=== PATIENT | male | born 2005 | race Caucasian/White ===

== ENCOUNTER 2023-12-27 18:15 | Day surgery (SDC) | payer OTHER, SELFPAY ==
[2023-12-27] VITALS (10 sets, daily range): BP systolic 137–165; BP diastolic 93–111; PULSE 68–114; RESP 14–18; TEMP -15–37.2; O2SAT 93–100; BMI 33.0
--- NOTE | 2023-12-27 18:44 | ED.GENADULT ---
HPI - General Adult General Date Seen: 12/27/23 Chief complaint: Abdominal Pain Stated complaint: Under ribs-left side severe stomachache Time Seen by Provider: 12/27/23 18:29 Source: patient, family and RN notes reviewed Mode of arrival: ambulatory Limitations: no limitations History of Present Illness HPI narrative: Patient is a 18-year-old who presents for abdominal pain which started overnight last night. He says that initially it was kind of in the upper abdomen both to the right and left. He does note that throughout the day it seems to have moved more into the right lower quadrant. He says as long as he is lying still he does not have any pain but when he leans forward he notes pain in the right lower quadrant. He has had a normal appetite, no nausea or vomiting, no diarrhea. Bowel movement was normal today. He has not had fevers or urinary symptoms. Denies history of similar pain. No prior abdominal surgeries. Mom was concerned about possible appendicitis as their neighbor had a similar presentation. He notes that his general health is good. Denies significant alcohol use. Does not smoke. Related Data Previous Rx's Medication Instructions Recorded dextroamphetamine-amphetamine ER 20 mg PO QAM #30 caps 07/19/23 20 mg 24hr capsule,extend release dextroamphetamine-amphetamine ER 20 mg PO QAM #30 caps 07/19/23 20 mg 24hr capsule,extend release (Adderall XR) dextroamphetamine-amphetamine ER 20 mg PO QAM #30 caps 07/19/23 20 mg 24hr capsule,extend release (Adderall XR) hydrocodone 5 mg-acetaminophen 325 1 - 2 tab PO Q6H PRN Pain #15 tabs 12/28/23 mg tablet Allergies Allergy/AdvReac Type Severity Reaction Status Date / Time No Known Allergies Allergy Unknown Verified 07/19/23 15:33 Review of Systems Status of ROS: Reports: 6 or more systems reviewed and unremarkable except as noted in History and below [facility] Medical History Attention deficit hyperactivity disorder (ADHD) (2017) ?F90.9 - Attention-deficit hyperactivity disorder, unspecified type (ICD-10) Surgical History History of tonsillectomy ?Z90.89 - Acquired absence of other organs (ICD-10) History of nasal surgery ?Z98.890 - Other specified postprocedural states (ICD-10) Family History Brother ADHD (attention deficit hyperactivity disorder) Family/Other Cancer Other Heart disease Stroke Social History Narrative: Non-smoker Smoking Status: Never smoker Do you use any of these nicotine containing products: None How often do you have a drink containing alcohol: monthly or less How often do you have six or more drinks on one occasion: Never AUDIT-C Alcohol total score: 1 Non-prescribed substance use: denies use Exam Narrative: Exam Narrative: Vital signs as noted above. In general, an alert, well-appearing patient. He looks comfortable. Head: Normocephalic, atraumatic. Eyes: Pupils are equal reactive. Extraocular movements are full. Conjunctivae are normal. ENT: Mucous membranes are moist. Throat is normal. Neck: Supple without lymphadenopathy. Heart: Regular rate and rhythm. No murmur or rub. Lungs: Clear bilaterally. No increased work of breathing, crackles or wheezes. Abdomen: Soft and nondistended. He has some tenderness at McBurney's point to deep palpation but does not have any rigidity, guarding or rebound tenderness. Remainder the abdomen is nontender to palpation. Bowel sounds are present. Extremities: Well perfused. No edema. No calf tenderness. Pulses intact. Neurologic: Patient is alert and oriented to person and place. Speech is fluent. Face is symmetric. Moves all extremities equally. Affect: Normal. Skin: Warm and dry. Well perfused. Const: Vital Signs, click to edit/add: Vital Signs - 24 hr 12/27/23 18:22 Temperature 98.9 F Pulse Rate [Pulse Oximeter] 80 Respiratory Rate 18 Blood Pressure [Ri ght Upper Arm] 147/93 H Pulse Oximetry 100 Oxygen Delivery Me thod Room Air Documenting provider has reviewed patient's vital signs: yes Course Course ED Course: Patient presents with right lower quadrant pain with some typical and some atypical features for appendicitis. Other considerations include urinary tract infection or kidney stone, muscular pain, colitis, inflammatory bowel disease, biliary colic or cholecystitis among others. Labs are overall pretty reassuring, white blood cell count is normal but his CRP is elevated at 1.9. Lactate is normal, lipase 32, LFTs otherwise unremarkable and metabolic panel is normal. Blood sugar 98. Urinalysis was negative, 0-2 red cells and 0-2 white cells, no ketones or glucose. Discussed all this with the patient and his mom. Discussed that he certainly does have tenderness over his appendix, and has an elevated CRP. Despite some atypical features I recommended CT scanning to further evaluate. CT is read as showing acute uncomplicated appendicitis in the right lower quadrant. Case discussed with Dr. Turner, who is currently in a case but will assess afterward. Patient is comfortable, declines the need for anything at this time. NPO, last ate around 5 or 530. Vital Signs Vital signs: Initial Vital Signs Temperature 98.9 F 12/27/23 18:22 Temperature Source Temporal Artery Scan 12/27/23 18:22 Pulse Rate 80 12/27/23 18:22 Pulse Rhythm Regular 12/27/23 18:22 Respiratory Rate 18 12/27/23 18:22 Blood Pressure 147/93 H 12/27/23 18:22 Blood Pressure Mean 111 H 12/27/23 18:22 Blood Pressure Position Sitting 12/27/23 18:22 Pulse Oximetry 100 12/27/23 18:22 Oxygen Delivery Method Room Air 12/27/23 18:22 Vital Signs Temperature 98.9 F 12/27/23 18:22 Pulse Rate 80 12/27/23 18:22 Respiratory Rate 18 12/27/23 18:22 Blood Pressure 147/93 H 12/27/23 18:22 Pulse Oximetry 100 12/27/23 18:22 Oxygen Delivery Method Room Air 12/27/23 18:22 Temperature 97.5 F L 12/28/23 01:45 Pulse Rate 114 H 12/27/23 23:58 Respiratory Rate 18 12/28/23 01:45 Blood Pressure 129/82 12/28/23 01:45 Pulse Oximetry 96 12/28/23 01:45 Oxygen Delivery Method Room Air 12/28/23 01:45 Medications Administered Medications: Discontinued Medications Generic Name Dose Route Start Last Admin Trade Name Freq PRN Reason Stop Dose Admin Hydrocodone Bitart/Acetaminophen 1 - 2 tab 12/27/23 23:56 12/28/23 02:07 Hydrocodone-Acetamin 5-325 Mg 1 Tab PO 2 tab Q4H PRN Administration Pain Bupivacaine HCl 30 ml 12/27/23 23:57 12/27/23 22:52 Bupivacaine 0.25% 30 Ml INJECTION 12/27/23 23:58 Not Given ONCE ONE Fentanyl 50 mcg 12/27/23 23:41 12/27/23 23:25 Fentanyl 100 Mcg/2 Ml Inj IVP 50 mcg Q5M PRN Administration Hydromorphone HCl 0.1 - 0.5 mg 12/27/23 23:56 12/28/23 01:53 Hydromorphone 0.5 Mg/0.5 Ml Inj IVP 0.5 mg Q2H PRN Administration Pain Sodium Chloride 1,000 mls @ 1,000 mls/hr 12/27/23 19:45 12/27/23 21:46 0.9 % Sodium Chloride 1000 Ml IV 12/27/23 20:44 Infused .Q1H LUIS E Infusion Lactated Ringer's 1,000 mls @ 125 mls/hr 12/27/23 23:45 12/27/23 23:44 Lactated Ringers 1000 Ml IV 30 mls/hr .Q8H LUIS E Infusion Lactated Ringer's 1,000 mls @ 125 mls/hr 12/27/23 23:56 12/28/23 00:25 Lactated Ringers 1000 Ml IV Not Given .Q8H LUIS E Ketorolac Tromethamine 15 mg 12/27/23 23:56 12/28/23 00:42 Ketorolac 15 Mg/Ml Inj IVP 01/01/24 23:55 15 mg Q6H PRN Administration Pain Piperacillin Sod/Tazobactam Sod 3.375 gm 12/27/23 22:11 12/27/23 22:33 Piperacillin/Tazobactam 3.375 Gm Inj IVPB 12/27/23 22:12 3.375 gm ONCE ONE Administration Medical Decision Making Lab Data Labs: Lab Results 12/27/23 12/27/23 Range/Units 18:50 19:40 WBC 7.77 (4.50-11.00) K/uL RBC 4.29 L (4.30-5.90) m/uL Hgb 13.3 L (13.5-17.5) gm/dL Hct 39.2 (37.0-53.0) % MCV 91 (80-100) fL MCH 31 (26-34) pg MCHC 34 (32-36) gm/dL RDW Coeff of Eli 11.6 (11.5-15.5) % Plt Count 245 (140-440) K/uL Neut % (Auto) 56.5 (42.0-72.0) % Lymph % (Auto) 33.1 (20-44) % [place] % (Auto) 8.4 (0.0-11.0) % Eos % (Auto) 1.4 (0.0-7.0) % Baso % (Auto) 0.5 (0.0-3.0) % Neut # (Auto) 4.39 (1.7-7.0) K/uL Lymph # (Auto) 2.57 (0.90-2.90) K/uL [place] # (Auto) 0.70 (0.00-0.90) K/UL Eos # (Auto) 0.11 (0.00-0.50) K/uL Baso # (Auto) 0.04 (0.00-0.30) K/uL Abs Immat Gran (auto) 0.01 (0.00-0.30) K/uL Imm/Tot Granulo (auto) 0.1 % Sodium 137 (135-149) mmol/L Potassium 3.6 (3.6-5.1) mmol/L Chloride 102 (96-114) mmol/L Carbon Dioxide 23 (20-32) mmol/L Anion Gap 12 (7-15) mEq/L BUN 13 (5-24) mg/dL Creatinine 0.8 (0.5-1.5) mg/dL Estimated Creat Clear 166.46 Estimated GFR 130 ml/min Glucose 98 (60-115) mg/dL Lactate 0.6 (0.5-1.9) mmol/L Calcium 9.5 (8.4-10.6) mg/dL Total Bilirubin 0.8 (0.1-1.5) mg/dL Direct Bilirubin 0.1 (0.0-0.5) mg/dL AST 28 (12-35) U/L ALT 30 (4-50) U/L Alkaline Phosphatase 78 (40-150) U/L C-Reactive Protein 1.9 H (0.5-1.0) mg/dL Total Protein 7.5 (6.0-8.3) g/dL Albumin 4.8 (3.3-5.0) g/dL Lipase 32 (23-300) U/L Urine Color Yellow (Yellow) Urine Appearance Clear (Clear) Urine pH 6.5 (5.0-8.5) Ur Specific [place] 1.020 (1.000-1.030) Urine Protein Negative (Negative) Urine Glucose (UA) Negative (Negative) Urine Ketones Negative (Negative) Urine Blood Negative (Negative) Urine Nitrite Negative (Negative) Urine Bilirubin Negative (Negative) Urine Urobilinogen 0.2 (0.2-1.0) Ur Leukocyte Esterase Negative (Negative) Urine RBC 0-2 (0-2) Urine WBC 0-2 (0-5) Ur Squamous Epith Cells None (None-Few) Urine Bacteria None (None) Discharge Plan Discharge Activity Level: Activity as Tolerated Activity Detail: No lifting more than 20 pounds for 2 weeks Discharge Diet: Regular
[2023-12-27 18:55] LABS: Lactate* 0.6 mmol/L (0.5-1.9)
[2023-12-27 19:01] LABS: Basophils Absolute Auto 0.04 K/uL (0.00-0.30); Basophils Percent Auto 0.5 % (0.0-3.0); Eosinophils Absolute Auto 0.11 K/uL (0.00-0.50); Eosinophils Percent Auto 1.4 % (0.0-7.0); Hematocrit 39.2 % (37.0-53.0); Hemoglobin* 13.3 gm/dL (13.5-17.5); Immature Granulocytes Abs Auto 0.01 K/uL (0.00-0.30); Immature Granulocytes Pct Auto 0.1 %; Lymphocytes Absolute Auto 2.57 K/uL (0.90-2.90); Lymphocytes Percent Auto 33.1 % (20-44); Mean Corpuscular HGB Conc 34 gm/dL (32-36); Mean Corpuscular Hemoglobin 31 pg (26-34); Mean Corpuscular Volume 91 fL (80-100); Monocytes Percent Auto 8.4 % (0.0-11.0); Neutrophils Absolute Auto 4.39 K/uL (1.7-7.0); Neutrophils Percent Auto 56.5 % (42.0-72.0); Platelet Count* 245 K/uL (140-440); RDW Coefficient of Variation % 11.6 % (11.5-15.5); Red Blood Count 4.29 m/uL (4.30-5.90); White Blood Count* 7.77 K/uL (4.50-11.00)
[2023-12-27 19:03] LABS: Slide Review Reflex No
[2023-12-27 19:17] LABS: Albumin* 4.8 g/dL (3.3-5.0); Chloride* 102 mmol/L (96-114); Sodium* 137 mmol/L (135-149)
[2023-12-27 19:18] LABS: Potassium* 3.6 mmol/L (3.6-5.1)
[2023-12-27 19:20] LABS: Alkaline Phosphatase* 78 U/L (40-150); Anion Gap 12 mEq/L (7-15); Aspartate Amino Transferase* 28 U/L (12-35); Bilirubin Direct* 0.1 mg/dL (0.0-0.5); Bilirubin Total* 0.8 mg/dL (0.1-1.5); Blood Urea Nitrogen* 13 mg/dL (5-24); Carbon Dioxide* 23 mmol/L (20-32); Creatinine* 0.8 mg/dL (0.5-1.5); Est. Creatinine Clearance* 166.46; Estimated Glomerular Filt Rate 130 ml/min; Glucose* 98 mg/dL (60-115); Lipase* 32 U/L (23-300); Total Protein* 7.5 g/dL (6.0-8.3)
[2023-12-27 19:21] LABS: Alanine Aminotransferase* 30 U/L (4-50); Calcium* 9.5 mg/dL (8.4-10.6)
[2023-12-27 19:23] LABS: C Reactive Protein* 1.9 mg/dL (0.5-1.0)
--- NOTE | 2023-12-27 19:31 | CT_ITS ---
Patient: ANNY BOOTH Facility:?[facility] Patient ID:?[id number] Site Patient ID:?[id number]. Site :?[id number] Study:?CT-Abdomen/Pelvis W ISOVUE 370-12/27/2023 8:12:40 PM Ordering Physician:MARGE Final Report: INDICATION: Abdominal right lower pain. TECHNIQUE: CT abdomen and pelvis acquired with 122 cc Isovue 370 IV contrast. COMPARISON: None. FINDINGS: Lower chest: Unremarkable. Liver: Unremarkable. Normal in size and attenuation. No suspicious masses. Gallbladder and bile ducts: Unremarkable. No stones or inflammation. No biliary dilatation. Pancreas: Unremarkable. No mass or inflammation. Spleen: Unremarkable. Normal in size. No masses. Adrenal glands: Unremarkable. No nodules. Kidneys: Unremarkable. No suspicious masses, stones, or hydronephrosis. GI tract: Dilated, fluid-filled appendix with edematous wall measuring up to 10 mm in diameter. Mild periappendiceal inflammatory changes. No evidence for perforation or abscess. The remainder of the GI tract is unremarkable. No obstruction. Vasculature: Abdominal aorta is normal in caliber. Mesenteric arteries are patent. Lymph nodes: No lymphadenopathy. Peritoneum/Abdominal Wall: Small fat-containing right indirect inguinal hernia. Trace amount of free fluid in the pelvis. No free air. Pelvis: Unremarkable. Bones: Unremarkable for age. IMPRESSION: Acute uncomplicated appendicitis in the right lower quadrant. Please note that all CT scans at this facility use dose modulation, iterative reconstruction, and/or weight-based dosing when appropriate to reduce radiation dose to as low as reasonably achievable. Dictated by Primitivo Ellington MD @ 12/27/2023 8:42:07 PM Signed by:?Primitivo Ellington MD @12/27/2023 8:42:07 PM (Electronic Signature)
[2023-12-27] MEDS: 0.9 % SODIUM CHLORIDE 1000 ml 1,000 ML IV (19:40)
[2023-12-27 19:46] LABS: Appearance Urine Clear (Clear); Bilirubin Urine Negative (Negative); Blood Urine Negative (Negative); Color Urine Yellow (Yellow); Glucose Urine Negative (Negative); Ketones Urine Negative (Negative); Leukocyte Esterase Urine Negative (Negative); Nitrite Urine Negative (Negative); Protein Urine Negative (Negative); Urobilinogen Urine 0.2 (0.2-1.0); pH Urine 6.5 (5.0-8.5)
[2023-12-27 19:59] LABS: RBC Urine 0-2 (0-2); WBC Urine 0-2 (0-5)
--- NOTE | 2023-12-27 21:43 | PM.GSHP ---
History of Present Illness History of Present Illness Date Seen: 12/27/23 Chief complaint: Under ribs-left side severe stomachache Narrative: Andrey Johnston is a 18 year old male who developed abdominal pain yesterday around 2:00 p.m.. This was all over his abdomen. He thought it was a bad stomach ache. Later he felt a bit better but he again had pain overnight. He went to work today and had pain all day. This was worse with movement. He came home and had a small amount a crab salad around 5:00 p.m.. Denies nausea or vomiting. Has not had a bowel movement since the pain started. No fevers. No urinary symptoms. The pain started epigastric and then radiated throughout his abdomen. Does not localized to 1 side or the other. He has never had anything like this before. PFSH [facility] Medical History Attention deficit hyperactivity disorder (ADHD) (2017) ?F90.9 - Attention-deficit hyperactivity disorder, unspecified type (ICD-10) Surgical History History of tonsillectomy ?Z90.89 - Acquired absence of other organs (ICD-10) History of nasal surgery ?Z98.890 - Other specified postprocedural states (ICD-10) Family History Brother ADHD (attention deficit hyperactivity disorder) Family/Other Cancer Other Heart disease Stroke Social History Narrative: Non-smoker Smoking Status: Never smoker Do you use any of these nicotine containing products: None How often do you have a drink containing alcohol: monthly or less How often do you have six or more drinks on one occasion: Never AUDIT-C Alcohol total score: 1 Non-prescribed substance use: denies use Meds Home Medications and Allergies Allergies Allergy/AdvReac Type Severity Reaction Status Date / Time No Known Allergies Allergy Unknown Verified 07/19/23 15:33 Exam Narrative: Exam Narrative: General appearance: Alert, cooperative, and in no distress Eyes: PERRLA, eye lids clear, and sclera white HENT Head: Normocephalic Ears: External ears normal Pulmonary: Clear to auscultation bilaterally Cardiovascular Heart: Regular rate and rhythm Extremities: warm and well perfused Gastrointestinal Abdominal: Abdomen is soft. No scars. He is mildly tender with rebound in the right lower quadrant. Musculoskeletal: Extremities: Upper: Both upper extremities have normal joint range of motion and intact strength. Lower: Both lower extremities have normal joint range of motion and intact strength. Skin: Normal skin color, texture, and turgor. Neurologic: No focal deficits Psychiatric: Alert, oriented, cooperative, normal affect. Const: Vital Signs, click to edit/add: Vital Signs - 24 hr 12/27/23 18:22 Temperature 98.9 F Pulse Rate [Pulse Oximeter] 80 Respiratory Rate 18 Blood Pressure [Ri ght Upper Arm] 147/93 H Pulse Oximetry 100 Oxygen Delivery Me thod Room Air Results Results Labs: White blood cell count is 7.7. LFTs within normal limits. CRP is 1.[address] scan report/results: report reviewed and image reviewed Additional studies: CT scan of the abdomen pelvis shows acute uncomplicated appendicitis in the right lower quadrant. Progress Note:A&P Assessment and plan (1) Acute appendicitis: Status: Acute Plan The patient is a 18-year-old male with acute appendicitis. We discussed that appendectomy is the preferred treatment for this. This can most often be done laparoscopically. We discussed risks and benefits of the procedure including but not limited to bleeding, need for conversion to open, risk of injury to other structures, need for possible bowel resection, and abscess formation. The patient understands that the risk of abscess is higher if the appendix is perforated. For that reason, we generally keep patient is in the hospital on IV antibiotics until vital signs and white blood cell count had normalized. We also discussed recovery including 2 weeks of lifting restrictions. He signed informed consent and agreed to proceed. We will plan on surgery emergently this evening.
--- NOTE | 2023-12-27 22:10 | PM.GSPRC ---
Operative Note Date of procedure: 12/27/23 Pre-op diagnosis: Acute appendicitis Post-op diagnosis: Same Type of Procedure: Laparoscopic appendectomy Indications: The patient is a 18-year-old male who presented to the emergency department with abdominal pain. He was found to have acute appendicitis. I recommended appendectomy. He agreed to proceed. Procedure Description: After discussing the risks and benefits of the procedure, the patient signed informed consent.? The operative site was marked and the patient was brought to the operating room and placed on the operating table in supine position.? Care was taken to pad the patient's pressure points.?? The patient was then intubated by anesthesia.?? The operative site was then prepped and draped in the usual sterile fashion.? A time-out was then performed. Entrance to the abdomen was obtained via a 5 mm optical trocar in the left upper quadrant. The abdomen was insufflated and briefly surveyed for any signs of injury. There were none. A 12 mm port was placed inferior to the umbilicus as well as a 5 mm port in the left lower quadrant. Both were done under direct vision. The patient was then placed in Trendelenburg position with the right side up. The small bowel was gently moved out of the way and the appendix was in view. This was markedly inflamed but not perforated. There was no purulence in the abdomen. A small amount of dissection was necessary to free the appendix from the surrounding pelvic attachments. The appendix was grasped and pulled into view. A mesenteric window was created between the base of the appendix and the mesoappendix. An Endo-AMOR purple load stapler was then used to transect the appendix at its base. A vascular load stapler was then used to divide the mesoappendix. The staple lines were inspected for bleeding. There was none. The appendix was then removed from the abdomen using an Endo-Catch bag. The specimen was sent to pathology. The ports were removed and the abdomen desufflated. The 12 mm port site fascia was closed with 0 Vicryl. The skin was then closed with absorbable subcuticular suture. Sterile dressings were then applied. Instrument sponge and needle counts were correct at the end of the case. The patient was then woken and transported to the PACU in stable condition. ? The patient tolerated the procedure well. Findings: Acute appendicitis without perforation. Anesthesia: GETA Surgeon: Monica Turner MD Estimated blood loss (mL): 5 Specimen: Appendix Condition: stable
[2023-12-27] MEDS: LACTATED RINGERS 1000 ML 1,000 ML 125 ML IV (22:31)
[2023-12-27] MEDS: PIPERACILLIN/TAZOBACTAM 3.375 GM INJ IVPB (22:33)
--- NOTE | 2023-12-27 22:53 | W.ANESCHARGE ---
Anesthesia Charges Start Date/Time Anesthesia Start Date: 12/27/23 Anesthesia Start Time: 22:31 Stop Date/Time Anesthesia Stop Date: 12/27/23 Anesthesia Stop Time: 11:20 Summary Emergency: [employer]
[2023-12-27] MEDS: fentaNYL 100 MCG/2 ML inj 50 MCG IVP (23:25)
--- NOTE | 2023-12-27 23:53 | SUR.PHASEI ---
patient meets pacu d/c criteria
[2023-12-28] VITALS: BP 149/90; RESP 16; TEMP 36.4; O2SAT 93
[2023-12-28] MEDS: HYDROmorphone 0.5 mg/0.5 ml inj IVP ×2 (00:04→01:53)
[2023-12-28 00:15] VITALS: BP 139/84; RESP 16; TEMP 36.4; O2SAT 95
[2023-12-28 00:30] VITALS: BP 132/88; RESP 18; TEMP 36.3; O2SAT 95
[2023-12-28] MEDS: KETOROLAC 15 MG/ML inj IVP (00:42)
[2023-12-28 00:45] VITALS: BP 143/85; RESP 18; TEMP 36.3; O2SAT 95
[2023-12-28 01:15] VITALS: BP 135/78; RESP 18; TEMP 36.3; O2SAT 97
[2023-12-28 01:45] VITALS: BP 129/82; RESP 18; TEMP 36.4; O2SAT 96
[2023-12-28] MEDS: HYDROCODONE-ACETAMIN 5-325 MG 1 TAB PO (02:07)
--- NOTE | 2023-12-28 02:40 | PC.NURSE ---
Patient admitted to unit at 2350 status post op laparoscopic appendectomy. Pain well managed with current regimen and ice pack to op site. Denies any nausea. Patient able to advance diet to food prior to discharge without nausea or vomiting. Lap sites clean, dry and intact. Discharge instructions reviewed with patient and mother present. Instructed patient to schedule appointment for follow up with Dr Turner. Patient voiding without issue. Patient discharged from unit at 0210, ambulated out of facility per request.
== END 2023-12-28 02:10 | disposition home or self-care (01) ==
LOC: ED 22:25 → OR 22:40 → MEDSURG 12-28 00:24
PROVIDERS: Emergency Provider Emergency Medicine; PCP Physician Assistant Medical; Visit Provider Surgery
PROC: 0DTJ4ZZ Resection of Appendix, Percutaneous Endoscopic Approach (ICD-10-PCS; CPT 44970; principal; 2023-12-27 22:30)
DX: K35.80 Unspecified acute appendicitis (principal)
CPT/HCPCS: 44970; 00840; 36415; 74177; 80048; 80076; 81001; 83605; 83690; 85025; 86140; 88304; 99140; 99284; A9270; J0330; J1100; J1170; J1885; J2543; J2704; J3010; J3490; J7030; J7120; Q9967

== ENCOUNTER 2024-02-22 10:53 | Outpatient (CLI) | payer OTHER, SELFPAY | END 2024-02-22 10:54 | disposition home or self-care (01) | LOC: FRMREF 10:53 | PROVIDERS: PCP Physician Assistant Medical; Visit Provider Physician Assistant Medical | DX: Z13.220 Encounter for screening for lipoid disorders (principal) | CPT/HCPCS: 80061 ==